=== PATIENT | female | born 1970 | race Caucasian/White ===

== ENCOUNTER 2018-10-18 04:56 | Emergency (ER) | payer MEDICAID ==
[~2018-10-18] VITALS: Ht 144.8 cm; Wt 73.0 kg
[~2018-10-18 04:56] MED LIST: MECL-109 PO
[2018-10-18] MEDS ORDERED: IBUPROFEN 600MG TABLET PO ONE (07:45)
[2018-10-18 08:19] LABS: CHLORIDE 107 mEq/L (98-107)
[2018-10-18 09:30] LABS: BASOPHILS % 0.7 % (0.0-2.0); EOSINOPHILS % 1.9 % (0.0-5.0); HEMATOCRIT. 39.6 % (36.0-48.0); HEMOGLOBIN. 13.3 g/dL (12.0-16.0); LYMPHOCYTES % 16.5 % (20.0-50.0); MEAN CORPUSCULAR HEMOGLOBIN 28.9 pg (28.0-32.0); MEAN CORPUSCULAR VOLUME 86.1 fL (81.0-99.0); MEAN PLATELET VOLUME 8.6 fl (7.4-10.4); MONOCYTES % 12.8 % (2.0-8.0); NEUTROPHILS % 68.1 % (40.0-76.0); PLATELET 232 x1000/uL (130-400); RED CELL DISTRIBUTION WIDTH 13.1 % (11.6-14.6)
[2018-10-18 10:00] VITALS: BP 103/67
== END 2018-10-18 10:41 | disposition home or self-care (01) ==
LOC: ER 10:02
DX: B34.9 Viral infection, unspecified (principal); Z98.890 Other specified postprocedural states
CPT/HCPCS: 36415; 81025; 87804; 99283

== ENCOUNTER 2022-09-22 02:16 | Inpatient (IN) | payer MEDICAID ==
[~2022-09-22] VITALS: Ht 144.8 cm; Wt 71.7 kg
[~2022-09-22 02:16] MED LIST changes: -MECL-109 PO; +MECL-159 PO
[2022-09-22] MEDS ORDERED: FAMOTIDINE 20MG/2ML VIAL IV ONE (07:45)
[2022-09-22] MEDS ORDERED: SODIUM CHLORIDE 0.9% 1,000 ML IV ONE (07:45)
[2022-09-22] MEDS ORDERED: ONDANSETRON HCL 4MG/2ML INJ IV ONE (07:45)
[2022-09-22 08:05] LABS: BASOPHILS % 0.4 % (0.0-2.0); EOSINOPHILS % 0.4 % (0.0-5.0); HEMATOCRIT. 43.2 % (36.0-48.0); HEMOGLOBIN. 14.4 g/dL (12.0-16.0); LYMPHOCYTES % 8.7 % (20.0-50.0); MEAN CORPUSCULAR HEMOGLOBIN 28.1 pg (28.0-32.0); MEAN CORPUSCULAR VOLUME 84.1 fL (81.0-99.0); MEAN PLATELET VOLUME 9.5 fl (7.4-10.4); MONOCYTES % 8.6 % (2.0-8.0); NEUTROPHILS % 81.9 % (40.0-76.0); PLATELET 260 x1000/uL (130-400); RED BLOOD CELL COUNT 5.13 mill/uL (4.2-5.4); RED CELL DISTRIBUTION WIDTH 12.9 % (11.6-14.6)
[2022-09-22 08:14] LABS: CHLORIDE 110 mEq/L (98-107); HCG SCREEN NEGATIVE; PROTHROMBIN TIME 10.6 sec (9.6-11.0)
[2022-09-22 08:32] LABS: CLARITY URINE CLEAR (CLEAR); COLOR URINE DARK YELLOW (YELLOW); PH URINE 5.5 (4.5-8.0); PROTEIN URINE 1+ (NEGATIVE); SPECIFIC GRAVITY URINE 1.022 (1.005-1.030)
[2022-09-22 08:33] LABS: KETONES URINE 1+ (NEGATIVE); NITRITE URINE NEGATIVE (NEGATIVE); OCCULT BLOOD URINE 3+ (NEGATIVE)
[2022-09-22 08:34] LABS: LEUKOCYTE ESTERASE URINE 1+ (NEGATIVE)
[2022-09-22] MEDS ORDERED: IOHEXOL-300 100 ML BOTTLE ONE (11:22)
[2022-09-22] MEDS ORDERED: MORPHINE SULFATE 2 MG/ML CPJ (NOT FOR IM USE) IV NR (11:30)
[2022-09-22] MEDS ORDERED: SODIUM CHLORIDE 0.9% 1,000 ML IV NR (14:30)
[2022-09-22] MEDS ORDERED: MORPHINE SULFATE 2 MG/ML CPJ (NOT FOR IM USE) IV ONE (14:30)
[2022-09-23] MEDS: PANTOPRAZOLE SODIUM 40 MG/VIAL IV SCH (09:00)
[2022-09-24] MEDS ORDERED: SODIUM CHLORIDE 0.9% 1,000 ML IV ONE (09:00)
[2022-09-24] MEDS: PANTOPRAZOLE SODIUM 40 MG/VIAL IV SCH (09:17)
[2022-09-24] MEDS ORDERED: MORPHINE SULFATE 4 MG/ML CPJ (NOT FOR IM USE) IV ONE (11:15)
[2022-09-24] MEDS ORDERED: DEXT 5%/0.9% NACL 1,000 ML IV ONE (13:00)
[2022-09-24] MEDS: PIPERACILLIN/TAZ 3.375G PREMIX 50 ML IV SCH ×2 (13:03→20:45)
[2022-09-24 17:36] VITALS: BP 122/74
[2022-09-24] MEDS ORDERED: KETOROLAC 30MG/ML VIAL IV PRN (17:45)
[2022-09-24 18:00] VITALS: BP 115/64
[2022-09-24] MEDS ORDERED: LEVO25TA7 MT (18:19)
[2022-09-24 20:00] VITALS: BP 146/78
[2022-09-25] MEDS ORDERED: PIPERACILLIN/TAZOBACTAM 3.375G in DEXT 5% WATER 50ML IV SCH (06:00)
== END 2022-09-24 20:45 | disposition home or self-care (01) ==
LOC: ER 02:29 → EDBEDREQTM 09-24 15:20 → EDBEDREQDT 09-24 15:20 → EDBEDREQ 09-24 15:20 → EDBEDREQSVC 09-24 15:21 → 6EST 09-24 15:22 → EDBEDREQ 09-24 15:30 → EDBEDREQTM 09-24 15:30 → ENRESERV 09-24 15:44
PROVIDERS: ADMIT Internal Medicine; ATTEND Internal Medicine
DX: K80.70 Calculus of gallbladder and bile duct without cholecystitis without obstruction (principal); K85.90 Acute pancreatitis without necrosis or infection, unspecified; R74.01 Elevation of levels of liver transaminase levels; I10 Essential (primary) hypertension; Z20.822 Contact with and (suspected) exposure to COVID-19; E87.6 Hypokalemia; E03.9 Hypothyroidism, unspecified; E66.9 Obesity, unspecified; Z90.49 Acquired absence of other specified parts of digestive tract; Z68.34 Body mass index [BMI] 34.0-34.9, adult
CPT/HCPCS: 36415; 74177; 80053; 80076; 81003; 82150; 82248; 83605; 84484; 84703; 85025; 87426; 96361; 96374; 96375; 96376; 99285; C9113; C9803; J2270; J2405; J2543; J3490; J7030; Q9967